=== PATIENT | female | born 1990 | race Two or more races ===

== ENCOUNTER 2018-08-02 17:13 | Emergency (ER) | payer MEDICAID ==
[~2018-08-02] VITALS: Ht 167.6 cm; Wt 59.0 kg
[2018-08-02 17:30] VITALS: BP 102/59
[2018-08-02 17:54] LABS: Urine Bacteria FEW /hpf (None Seen); Urine Blood 1+ /uL (Negative); Urine Specific Gravity 1.003 (1.001-1.035); Urine WBC 91 /hpf (0 - 5)
== END 2018-08-02 18:14 | disposition home or self-care (01) ==
LOC: ER 17:19
DX: O23.41 Unspecified infection of urinary tract in pregnancy, first trimester (principal); Z3A.11 11 weeks gestation of pregnancy
CPT/HCPCS: 81001; 81025

== ENCOUNTER 2018-10-10 17:42 | Emergency (ER) | payer MEDICAID ==
[~2018-10-10] VITALS: Ht 167.6 cm; Wt 63.5 kg
[2018-10-10] MEDS ORDERED: cefTRIAXone SOD 1,000 MG VL IM ONE (18:45)
[2018-10-10] MEDS ORDERED: PHENAZOPYRIDINE HCL 100 MG TAB PO ONE (18:45)
[2018-10-10 19:03] LABS: Urine Bacteria FEW /hpf (None Seen); Urine Blood 2+ /uL (Negative); Urine Specific Gravity 1.003 (1.001-1.035); Urine WBC 84 /hpf (0 - 5); Urine WBC Clumps PRESENT /hpf (None Seen)
[2018-10-10 19:26] VITALS: BP 110/65
== END 2018-10-10 19:27 | disposition home or self-care (01) ==
LOC: ER 17:44
DX: O26.892 Other specified pregnancy related conditions, second trimester (principal); Z3A.22 22 weeks gestation of pregnancy
CPT/HCPCS: 81001; 81025; 96372; 99283; J0696

== ENCOUNTER → 2018-10-12 | Emergency (ER) | payer MEDICAID | END | disposition left against medical advice (07) | LOC: ER 23:38 | DX: R50.9 Fever, unspecified (principal); Z53.21 Procedure and treatment not carried out due to patient leaving prior to being seen by health care provider ==